=== PATIENT | male | born 1955 | race African-American/Black ===

== ENCOUNTER 2022-05-31 06:40 | Emergency (ER) | payer MEDICARE, MEDICAID ==
[~2022-05-31] VITALS: Ht 180.3 cm; Wt 78.0 kg
[2022-05-31 07:55] LABS: BASOPHILS % 0.7 % (0.0-2.0); EOSINOPHILS % 3.1 % (0.0-5.0); HEMATOCRIT. 35.4 % (42.0-52.0); HEMOGLOBIN. 11.5 g/dL (14.0-18.0); LYMPHOCYTES % 32.6 % (20.0-50.0); MEAN CORPUSCULAR HEMOGLOBIN 30.1 pg (28.0-32.0); MEAN CORPUSCULAR VOLUME 92.2 fL (80.0-94.0); MEAN PLATELET VOLUME 8.6 fl (7.4-10.4); MONOCYTES % 8.1 % (2.0-8.0); NEUTROPHILS % 55.5 % (40.0-76.0); PLATELET 144 x1000/uL (130-400); RED BLOOD CELL COUNT 3.83 mill/uL (4.7-6.1); RED CELL DISTRIBUTION WIDTH 15.4 % (11.6-14.6)
[2022-05-31 08:04] LABS: CHLORIDE 110 mEq/L (98-107)
[2022-05-31] MEDS ORDERED: MORPHINE SULFATE 4 MG/ML CPJ (NOT FOR IM USE) IV NR (10:00)
[2022-05-31] MEDS ORDERED: HYDR-3641 MT (10:04)
[2022-05-31 12:00] VITALS: BP 130/80
== END 2022-05-31 12:38 | disposition home or self-care (01) ==
LOC: ER 06:40
DX: G62.9 Polyneuropathy, unspecified (principal); I10 Essential (primary) hypertension; Z00.00 Encounter for general adult medical examination without abnormal findings; E11.9 Type 2 diabetes mellitus without complications
CPT/HCPCS: 36415; 71045; 80053; 80320; 83880; 84484; 85025; 93005; 93970; 96374; 99285; J2270; G0480